=== PATIENT | female | born 1950 | race Two or more races ===

== ENCOUNTER 2023-08-10 08:45 | Inpatient (IN) | payer OTHER ==
[2023-08-10 11:12] LABS: HEMATOCRIT 43.2 % (36.0-45.00); HEMOGLOBIN 14.6 g/dL (12.0-15.00); MEAN CORPUSCULAR HEMOGLOBIN 30.1 pg (27.00-32.0); MEAN CORPUSCULAR HGB CONC 33.9 g/dl (32.0-36.0); PLATELET COUNT 227 K/uL (150-450); RED BLOOD COUNT 4.85 M/uL (4.00-6.00); RED CELL DISTRIBUTION WIDTH 14.5 % (11.5-14.5)
[2023-08-10 11:44] LABS: INR 1.04; PARTIAL THROMBOPLASTIN TIME 29.2 SECONDS (22.0-34.0); PROTHROMBIN TIME 10.9 SECONDS (9.0-11.5)
[2023-08-10 11:52] LABS: PH,URINE 6.5 (5.0-8.0); URINE APPEARANCE Clear; URINE BILIRRUBIN Negative (NEGATIVE); URINE BLOOD Trace; URINE COLOR Yellow; URINE GLUCOSE Negative (NEGATIVE); URINE LEUKOCYTE Moderate; URINE NITRATE Negative; URINE PROTEIN Negative (NEGATIVE); URINE UROBILINOGEN 0.2 E.U./dl
[2023-08-10 11:52] LABS: ALBUMIN 3.8 gm/dL (3.4-5.0); BILIRUBIN TOTAL 0.65 mg/dL (0.3-1.2); CALCIUM 9.3 mg/dL (8.5-10.1); CREATININE SERUM 0.83 mg/dL (0.55-1.02); GFR 67.57; GLOBULINA 3.5 G/DL (2.4-3.5); POTASSIUM 4.53 mEq/L (3.5-5.1); TOTAL PROTEIN 7.3 gm/dL (6.4-8.2)
[2023-08-10 11:53] LABS: URINE BACTERIA 353.9 uL (0.0-1933); URINE EPITHELIAL CELLS 16.2 uL (0.0-38.8); URINE RBC 25.7 uL (0.0-20.8); URINE WBC 17.1 uL (0.0-23.2)
[2023-08-10] MEDS ORDERED: CRESTOR5 MG PO (12:09)
[2023-08-10] MEDS ORDERED: NEUROTIN (12:09)
[2023-08-10] MEDS ORDERED: ZESTRIL10 M1 (12:09)
[2023-08-20] MEDS ORDERED: METRONIDAZOLE/SODIUM CHLORIDE 500 MG/100 ML PIGGYBACK IV ONE ×2 (15:52→16:30)
[2023-08-20] MEDS ORDERED: CEFTRIAXONE SODIUM 2,000 MG VIAL ONE (15:52)
[2023-08-20] MEDS ORDERED: LIDOCAINE HCL 1%/Epi 20ML VIAL IJ ONE ×2 (15:52→16:30)
[2023-08-20] MEDS ORDERED: BUPIVACAINE HCL/PF 0.25% 30ML VIAL InF ONE (15:52)
[2023-08-20] MEDS ORDERED: GABAPENTIN100 M2 (16:27)
[2023-08-20] MEDS ORDERED: CEFTRIAXONE SODIUM 2,000 MG VIAL IV ONE (16:30)
[2023-08-20] MEDS ORDERED: BUPIVACAINE HCL 30 ML VIAL IJ ONE (16:30)
[2023-08-20] MEDS ORDERED: OxyCODONE HCL 5 MG TABLET (ROXICODONE) PO PRN (18:00)
[2023-08-20] MEDS ORDERED: MORPHINE SULFATE 4 MG/ML CARTRIDGE IV PRN (18:00)
[2023-08-20] MEDS ORDERED: ONDANSETRON HCL 2 MG/ML VIAL IV PRN (18:00)
[2023-08-20] MEDS ORDERED: DEXTROSE 50 % IN WATER 0.5 G/ML DISP.SYRIN IV PRN (18:00)
[2023-08-20] MEDS ORDERED: 0.9 % SODIUM CHLORIDE 1,000 ML IV SCH (18:00)
[2023-08-20] MEDS ORDERED: ONDANSETRON HCL 2 MG/ML VIAL ONE (19:54)
[2023-08-20] MEDS ORDERED: ACETAMINOPHEN 500 MG GEL..CAP PO SCH (20:00)
[2023-08-20] MEDS ORDERED: ENALAPRILAT DIHYDRATE 1.25 MG/ML VIAL IV PRN (20:30)
[2023-08-20] MEDS ORDERED: FAMOTIDINE/PF 20 MG/2 ML VIAL ONE (20:59)
[2023-08-20] MEDS ORDERED: INSULIN LISPRO 1,000 UNIT/10 ML UNITS SUBCUTANEO PRN (21:00)
[2023-08-20] MEDS ORDERED: FAMOTIDINE/PF 20 MG/2 ML VIAL IV PUSH SCH (21:00)
[2023-08-20 21:44] LABS: CREATININE SERUM 0.68 mg/dL (0.55-1.02); GFR 85.05
[2023-08-20 21:45] LABS: ALBUMIN 3.5 gm/dL (3.4-5.0); CALCIUM 8.7 mg/dL (8.5-10.1); MAGNESIUM 1.9 mg/dL (1.8-2.4); PHOSPHOROUS 3.2 mg/dL (2.5-4.9); POTASSIUM 4.32 mEq/L (3.5-5.1)
[2023-08-21] MEDS ORDERED: GABAPENTIN 300 MG CAPSULE PO SCH (01:00)
[2023-08-21] MEDS ORDERED: METRONIDAZOLE/SODIUM CHLORIDE 500 MG/100 ML PIGGYBACK IV SCH (01:00)
[2023-08-21 05:25] LABS: HEMOGLOBIN 15.6 g/dL (12.0-15.00); MEAN CELL VOLUME 91.1 fL (80.00-100.00); MEAN CORPUSCULAR HEMOGLOBIN 30.8 pg (27.00-32.0); MEAN CORPUSCULAR HGB CONC 33.9 g/dl (32.0-36.0); PLATELET COUNT 196 K/uL (150-450); RED BLOOD COUNT 5.05 M/uL (4.00-6.00); RED CELL DISTRIBUTION WIDTH 13.3 % (11.5-14.5)
[2023-08-21 05:36] LABS: ALBUMIN 3.5 gm/dL (3.4-5.0); CALCIUM 8.9 mg/dL (8.5-10.1); CREATININE SERUM 0.76 mg/dL (0.55-1.02); GFR 74.81; MAGNESIUM 1.8 mg/dL (1.8-2.4); POTASSIUM 4.28 mEq/L (3.5-5.1)
[2023-08-21] MEDS ORDERED: HYOSCYAMINE SULFATE 0.125 MG TAB.SUBL SL SCH (09:00)
[2023-08-21] MEDS ORDERED: CYCLOBENZAPRINE HCL 5 MG TABLET PO SCH ×2 (09:00→17:00)
[2023-08-21] MEDS ORDERED: LISINOPRIL 10 MG TABLET PO SCH (09:00)
[2023-08-21] MEDS ORDERED: ENOXAPARIN SODIUM 40 MG/0.4 ML SYRINGE SUBCUTANEO SCH (17:00)
[2023-08-21] MEDS ORDERED: POLYETHYLENE GLYCOL 3350 17 GM BLIST.PACK PO SCH (17:00)
[2023-08-22] MEDS ORDERED: ENOXAPARIN SODIUM 40 MG/0.4 ML SYRINGE SUBCUTANEO SCH (09:00)
[2023-08-23] MEDS ORDERED: HYOSCYAMINE0.125 M1 SL (12:28)
[2023-08-23] MEDS ORDERED: GABAPENTIN300 MG PO (12:29)
== END 2023-08-23 13:51 | disposition home or self-care (01) | DRG 331 ==
LOC: SURG 08-20 08:45 → O/R 08-20 09:30 → SURG 08-20 11:00 → SURH 08-21 17:26
PROVIDERS: ADMIT Surgery; ATTEND Surgery
PROC: 0DBP4ZZ Excision of Rectum, Percutaneous Endoscopic Approach (ICD-10-PCS; 2023-08-20)
PROC: 0DJD8ZZ Inspection of Lower Intestinal Tract, Via Natural or Artificial Opening Endoscopic (ICD-10-PCS; 2023-08-20)
PROC: 0DTN4ZZ Resection of Sigmoid Colon, Percutaneous Endoscopic Approach (ICD-10-PCS; principal; 2023-08-20 11:00)
DX: K57.32 Diverticulitis of large intestine without perforation or abscess without bleeding (principal); R10.32 Left lower quadrant pain; N73.6 Female pelvic peritoneal adhesions (postinfective); N99.4 Postprocedural pelvic peritoneal adhesions